=== PATIENT | male | born 1990 | race Caucasian/White ===

== ENCOUNTER 2020-04-29 11:28 | Outpatient (REF) | payer MEDICARE, SELFPAY ==
[2020-04-29 12:55] LABS: Anion Gap 12 (12-20); Blood Urea Nitrogen 15 mg/dL (9-16); Carbon Dioxide 29 mmol/L (22-29); Chloride 99 mmol/L (96-108); Estimated Glomerular Filt Rate > 60; Glucose Random 92 mg/dL (60-115); Potassium 4.4 mmol/l (3.3-5.1); Sodium 136 mmol/L (135-145)
[2020-05-03 13:42] LABS: Oxcarbazepine 59.4 mcg/mL (8.0-35.0)
== END 2020-04-29 11:29 | disposition home or self-care (01) ==
LOC: HO.LAB 11:28
PROVIDERS: PCP Internal Medicine; Visit Provider Psychiatry & Neurology Neurology
DX: G40.909 Epilepsy, unspecified, not intractable, without status epilepticus (principal)
CPT/HCPCS: 80048; 80156; 80339

== ENCOUNTER 2025-02-04 10:18 | Outpatient (AMB) | payer MEDICARE, MEDICAID, SELFPAY ==
--- NOTE | 2025-02-04 10:35 | A.OFFVIS_ITS ---
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 He was doing okay. No seizures or spells. He was taking Trileptal (brand name) 900mg twice a day. No medication side effects. Sleep was okay. Mood was okay. Walking with walker, no falls. [facility], LATER [facility] Medical History (Updated 02/04/25 @ 10:39 by Khadijha Philip RESERVOIR ENGINEERING CONSULTANT) Obesity Epilepsy Chronic static encephalopathy Review of Systems Const Denies chills, Denies daytime sleepiness, Denies difficulty sleeping, Denies fatigue, Denies fever(s), Denies frequent falls, Denies headache(s), Denies increased appetite, Denies poor appetite, Denies snoring, Denies weakness, Denies weight gain and Denies weight loss Eyes Denies loss of vision ENT Denies vertigo, Denies dizziness and Denies headache(s) Card Denies chest pain at rest, Denies chest pain with activity, Denies syncope, Denies leg edema and Denies palpitations Resp Denies snoring GI Denies constipation, Denies heartburn, Denies diarrhea and Denies nausea Denies urinary frequency, Denies urinary incontinence and Denies urinary urgency Musc Reports abnormal gait (balance difficulty), Denies numbness and Denies tingling Skin/Breast Denies dry skin and Denies rash Neuro Reports abnormal gait (balance difficulty), Denies vertigo, Denies dizziness, Denies syncope, Denies frequent falls, Denies headache(s), Reports lack of coordination, Denies loss of vision, Denies memory loss, Denies numbness, Denies restless legs, Reports seizure-like activity, Denies tingling, Denies parest hesias, Denies tremor(s) and Denies weakness Psych Denies anxiety, Denies depression, Denies auditory hallucinations, Denies memory loss, Denies visual hallucinations and Denies suicidal ideation Endo Denies fatigue and Denies palpitations Physical Exam Const Other: General Appearance:? normal, in no acute distress. Skin:? no rashes, no significant birthmarks. Heart:? S1, S2 normal, no murmurs. Lungs:? clear anteriorly and posteriorly. Extremities:? no edema. Psych:? alert, cooperative with exam. Neuro Other: Mental Status:?Alert and awake, communication limited. No conversation. Cranial Nerves:?Pupils are equal, round and reactive to light. External occular muscles are intact. Visual barnard are full. Face is symmetrical. Facial sensations are normal. Tongue is midline. Palate elevates symmetrically. Shoulder shrugging is normal. Hearing to bedside conversation is normal. Gait Exam: Wide based, waddling with walker. Cerebellar Signs:?[id number] and [id number] is normal.? Extrapyramidal System:?No tremor, rigidity with normal facial expressions.? Pronator Drift:?Not present.? Involuntary Movements:?No tremors seen.? Speech:?None. Assessment & Plan Assessment & Plan (1) Epilepsy: Code(s): G40.909 - Epilepsy, unspecified, not intractable, without status epilepticus Category: Medical Qualifiers: Epilepsy type: unspecified Intractability: not intractable Status epilepticus: without status epilepticus Qualified Code(s): G40.909 - Epilepsy, unspecified, not intractable, without status epilepticus Plan: Continue Trileptal 600mg 1.5 tablets twice a day. Brand name only. (2) Chronic static encephalopathy: Code(s): G93.49 - Other encephalopathy Category: Medical Plan . Coding Level of Care Code Est Pt Level 3 (61333) Diagnoses Nonintractable epilepsy without status epilepticus, unspecified epilepsy type G40.909 Epilepsy type: unspecified Intractability: not intractable Status epilepticus: without status epilepticus Chronic static encephalopathy G93.49
--- OUTSIDE RECORDS SUMMARY | 2025-02-04 11:11 | XMS_ITS | Clinical Summary ---
Author Organization [facility] Address [address] [place] [address] Care Team Providers Care Director Of Conservation Name Role Phone Joselito Guillermo MD Primary Care Provider [phone] Allergies No known active allergies Medications multivitamin (MULTIPLE VITAMINS ORAL) Take by mouth. Active OXcarbazepine (TRILEPTAL) 600 mg tablet Take 1.5 Tablets by mouth 2 times daily. Active Active Problems Problem Noted Date Diagnosed Date Hyperlipidemia 12/15/2017 Overview (06/25/2024): Triglycerides 166, 12/03/2013 Edema of extremities 12/15/2017 Intellectual disability 12/24/2008 Seizure disorder ([facility] V24, [facility] V28) 12/08 Overview (06/25/2024): Follows with Neurology (Leo) on annual basis. Infantile cerebral palsy ([facility] V24, [facility] V 28) 09/05/2007 Overview (06/25/2024): IMO update Immunizations Name Administration Dates Next Due Influenza Quadravalent, MDCK , 0.5ml, preservative free (Flucelvax) 6mo and older 04/16/2022,05/13/2020 Influenza trivalent, 0.5mL, preservative free (Fluarix; FluLaval; Fluzone) ages 6mo and older (Afluria) 3 years and older 04/17/2021,05/06/2018,05/01/2017,2015 Influenza trivalent, with preservative (Fluzone; Afluria) 6mo and older 05/01/2015,05/19/2012,06/20/2011,2009 Moderna (age 6mo & older) Bi valent, COVID-19, 0.5 mL or 0.25 mL dosage 04/22/2022 Tdap Tetanus diptheria acell ular pertussis (Boostrix; Adacel) 7yo and older 11/19/2020,09/25/2009 Surgical History Surgery Date Site/Laterality Comments LEG SURGERY PROCEDURE: HISTORICAL LEG SURGERY; COMMENT: bilateral, multiple Medical History Medical History Date Comments Muteness 09/05/2007 DX:Muteness Infantile cerebral palsy, unspecified 09/05/2007 DX:Infantile cerebral palsy, unspecified Cough 09/05/2007 DX:Cough Mental retardation 12/24/2008 DX:Mental ret ardation Seizure disorder ([facility] V2 4, [facility] V28) 12/24/2008 DX:Seizure disorder ([facility]) Family History Medical History Relation Name Comments No Known Problems Aunt No Known Problems Brother Other: generally well Father No Known Problems Maternal Grandfather No Known Problems Maternal Grandmother Other: generally well Mother No Known Problems Other No Known Problems Paternal Grandfather No Known Problems Paternal Grandmother No Known Problems Sister No Known Problems Uncle Blindness Neg Hx Cataracts Neg Hx Glaucoma Neg Hx Macular degeneration Neg Hx Strabismus Neg Hx Relation Name Status Comments Aunt Brother Father Maternal Grandfather Maternal Grandmother Mother Other Paternal Grandfather Paternal Grandmother Sister Uncle Social History Tobacco Use Types Packs/Day Years Used Date Smoking Tobacco: Never Smokeless Tobacco: Never Alcohol Use Standard Drinks/Week Comments No 0 (1 standard drink = 0.6 oz pur e alcohol) Sex and Gender Information Value Date Recorded Sex Assigned at Not on file Legal Sex Male 10:06 AM EST Gender Identity Not on file Sexual Orientation Not on file Obstetrics History Last Filed Vital Signs Vital Sign Reading Time Taken Comments Blood Pressure 120/70 04/10/2024 9:17 AM EDT Pulse 80 04/10/2024 9:17 AM EDT Temperature - - Respiratory Rate - - Oxygen Saturation - - Inhaled Oxygen Concentration - - Weight 74.6 kg (164 lb 6.4 oz) 04/10/2024 9:17 A M EDT Height 170.2 cm (5' 7 ) 04/10/2024 9:17 AM EDT Body Mass Index 25.75 04/10/2024 9:17 AM EDT Plan of Treatment Upcoming Encounters Date Type Department Care Team (Late st Contact Info) Description 03/03/2025 4:00 PM EDT Office Visit Adult Medicine [facility] [address] [place] [address] Joselito Giullermo MD [address] [place] [id number] Health Maintenance Due Date Last Done Comments Hepatitis B Vaccines (1 of 3 - 19+ 3-dose series) 01/27/2007 HIV Screening 06/18/2022 Hepatitis C Screening 06/18/2022 Medicare Annual Wellness Visit 06/18/2022 Social Influencers of Health Screening 06/18/2022 COVID-19 Vaccine ( season) 2024 04/22/2022, 07/07/2021, 09/20/2020, Additional history exists Depression Screening 07/10/2024 Influenza Vaccine (#1) 2025 , 06/09/2023, 04/16/2022, Additional history exists Cholesterol Screening (Lipid Panel) 03/01/2029 03/01/2024, 03/01/2024 DTaP,Tdap,and Td Vaccines (3 - Td or Tdap) 11/19/2030 11/19/2020, 09/25/2009 HIB Vaccines Aged Out No longer eligi ble based on patient's age to complete this topic HPV Vaccines Aged Out No longer eligi ble based on patient's age to complete this topic Hepatitis A Vaccines Aged Out No long er eligible based on patient's age to complete this topic IPV Vaccines Aged Out No longer eligi ble based on patient's age to complete this topic MMR Vaccines Aged Out No longer eligi ble based on patient's age to complete this topic Meningococcal ACWY Vaccine Aged Out N o longer eligible based on patient's age to complete this topic Meningococcal B Vaccine Aged Out No l onger eligible based on patient's age to complete this topic Pneumococcal Vaccine: Pediatrics (0 to 5 Years) and At-Risk Patients (6 to 49 Years) Aged Out No longer eligible based on patient's age to complete this topic RSV Immunization Patients Under 20 months Aged Out No longer eligible based on patient's age to complete this topic Varicella Vaccines Aged Out No longer eligible based on patient's age to complete this topic Procedures Procedure Name Priority Date/Time Associated Diagnosis Comments LIPID PANEL Routine 03/01/2024 from Last 3 Months or Most Recently Relevant to Health Maintenance Results * Lipid panel (03/01/2024) LDL/HDL Ratio 2 0 - 4 Triglycerides 40 0 - 150 mg/dL Cholesterol 130 0 - 200 mg/dL HDL 78 >=40 mg/dL LDL Cholesterol 44 0 - 100 mg/dL Blood Venous blood specimen / Unknown us Historical Provider LAB BLOOD ORDERABLES Saumya l Result from Last 3 Months or Most Recently Relevant to Health Maintenance Care Teams Director Of Conservation Relationship Specialty Start Date End Date Joselito Guillermo MD PCP - General Internal Medicine 04/09/11
--- OUTSIDE RECORDS SUMMARY | 2025-02-04 11:11 | XMS_ITS | Clinical Summary ---
Author Organization [employer] [facility] Address [address] [employer] [place] [address] Care Team Providers Care Marketing Rotation Associate Name Role Phone Pcp, No Primary Care Provider [phone] Medications TrileptaL 600 mg tablet TAKE 2 TABLETS BY MOUTH TWICE DAILY IN THE MORNING AND AT NIGHT 02/01/2021 Active Immunizations Name Administration Dates Next Due Flucelvax Trivalent PFS IM; Without Preservative (18+ mos) 04/16/2022,05/13/2020 Flucelvax Trivalent Prefille d Syringe (18+MOS) 06/29/2024 Fluzone Trivalent Multi-dose Vial (36+ months) 05/01/2015,05/19/2012,06/20/2011,2009 Influenza, Unspecified 04/17/2021,2017,05/01/2017,2015 Pfizer Comirnattara Covid-19 Pr efilled Syringe (12+ yrs) 06/29/2024 Tdap 11/19/2020,09/25/2009 Social History Tobacco Use Types Packs/Day Years Used Date Smoking Tobacco: Never Assessed Sex and Gender Information Value Date Recorded Sex Assigned at Not on file Legal Sex Male 3:21 PM EDT Gender Identity Not on file Sexual Orientation Not on file Last Filed Vital Signs Vital Sign Reading Time Taken Comments Blood Pressure - - Pulse 60 02/04/2021 11:06 AM EDT Temperature 36.4 C (97.5 F) 02/04/2021 11:06 AM EDT Respiratory Rate - - Oxygen Saturation 95% 02/04/2021 11:06 AM EDT Inhaled Oxygen Concentration - - Weight - - Height - - Body Mass Index - - Plan of Treatment Health Maintenance Due Date Last Done Comments Depression: Screening Annually using PHQ-2/9 in Adults 18 yrs or above (or HM Modifier)([facility]) 01/27/2006 Hepatitis C Virus Infection in Adolescents and Adults: Screening (or Modifier) ([facility] ) 01/27/2006 SDOH Screening Reminder: Annually for all adults ([facility] ) 01/27/2006 Tobacco Smoking Cessation: i n Adults excluding Women: Behavioral and Pharmacotherapy Interventions ([facility] ) 01/27/2006 Flu Vaccination: Yearly for ages 18mos through 64 years (or Modifier)([facility]) 02/07/2025 06/29/2024, 04/16/2022, 04/17/2021, Additional history exists DTaP/Tdap/Td Vaccines ([facility]) (3 - Td or Tdap) 11/19/2030 11/19/2020, 09/25/2009 Zoster/Shingles Vaccine Series Screening: Adults aged 18+ yrs (or HM Modifiers)([facility] ) (1 of 2) 01/27/2038 COVID-19 Vaccine Screening: Initial Series and Booster Status ([facility]) Completed 06/29/2024, 04/22/2022 Pneumococcal Vaccination Screening: Pts 0-19 & 19-49 yrs of age ([facility]) Aged Out No longer eligible based on patient's age to complete this topic Medical Devices Not on file Insurance [facility] [employer] Care Teams Marketing Rotation Associate Relationship Specialty Start Date End Date Pcp, No PCP - General Family Medicine 02/04/21
== END 2025-02-04 10:47 | disposition home or self-care (01) ==
LOC: HO.HSM 10:19
PROVIDERS: PCP Internal Medicine; Referring Provider Internal Medicine; Visit Provider Registered Nurse
DX: G40.909 Epilepsy, unspecified, not intractable, without status epilepticus (principal); G93.49 Other encephalopathy
CPT/HCPCS: 99213

== ENCOUNTER → 2025-02-04 10:18 | Outpatient (BNVA) | payer MEDICARE, MEDICAID, SELFPAY | PROVIDERS: PCP Internal Medicine; Referring Provider Internal Medicine; Visit Provider Registered Nurse | DX: G93.49 Other encephalopathy (principal); G40.909 Epilepsy, unspecified, not intractable, without status epilepticus | CPT/HCPCS: 99212 ==